=== PATIENT | female | born 1985 | race Caucasian/White ===

== ENCOUNTER → 2018-12-03 10:47 | Outpatient (CLI) | payer OTHER, SELFPAY ==
[2018-12-04 12:29] LABS: HPV Reflexed? NOT INDICATED
== END ==
PROVIDERS: Family Provider Internal Medicine; PCP Internal Medicine; Referring Provider Obstetrics & Gynecology; Visit Provider Obstetrics & Gynecology
DX: Z12.4 Encounter for screening for malignant neoplasm of cervix (principal)
CPT/HCPCS: 88175; G0145